=== PATIENT | female | born 1965 | race Caucasian/White ===

== ENCOUNTER → 2017-03-23 07:24 | Outpatient (CLI) | payer BC | END | disposition home or self-care (01) | LOC: D.RAD 03-21 08:00 | DX: K21.9 Gastro-esophageal reflux disease without esophagitis (principal) ==

== ENCOUNTER → 2017-09-08 09:35 | Outpatient (CLI) | payer BC ==
[2017-09-13 18:10] LABS: IMMUNOGLOBULIN E 255 IU/mL (0-100)
== END | disposition home or self-care (01) ==
LOC: D.RT 09:35
PROVIDERS: Internal Medicine Pulmonary Disease
DX: J45.991 Cough variant asthma (principal)